=== PATIENT | female | born 1965 | race Two or more races ===

== ENCOUNTER 2016-06-07 13:22 | Emergency (ER) | payer OTHER ==
[~2016-06-07] VITALS: Ht 154.9 cm; Wt 72.6 kg
[2016-06-07 13:30] VITALS: BP 147/85
--- NOTE | 2016-06-07 13:41 | PHYS DOC ---
Past Medical History Past Medical History: Anxiety, High Cholesterol, Hypertension, Hypothyroid Past Surgical History: Cholecystectomy, Tubal ligation Alcohol Use: None Drug Use: None Adult General Chief Complaint Chief Complaint: LOWER BACK PAIN OR INJURY [facility] HPI Patient is a 50 year old female presents emergency room today with complaint of atraumatic left lower back and hip pain for approximately 6 months. Patient denies radiation of pain down her lower leg. She reports pain is worsened with activity/movement. She denies saddle anesthesia or incontinence of urine and bowel. She denies any previous pelvis or hip injuries. She denies any history of bone forming disorders. Patient states the prevailing thought of her primary care doctor was at this is sciatica. No previous images of been done. Review of Systems Review of Systems Constitutional: Denies fever or chills [] Eyes: Denies change in visual acuity, redness, or eye pain [] HENT: Denies nasal congestion or sore throat [] Respiratory: Denies cough or shortness of breath [] Cardiovascular: No additional information not addressed in HPI [] GI: Denies abdominal pain, nausea, vomiting, bloody stools or diarrhea [] : Denies dysuria or hematuria [] Musculoskeletal: Denies back pain or joint pain [] Integument: Denies rash or skin lesions [] Neurologic: Denies headache, focal weakness or sensory changes [] Endocrine: Denies polyuria or polydipsia [] Current Medications Current Medications Current Medications Medications (Trade) Dose Ordered Sig/[facility] Start Time Stop Time Status Last Admin Dose Admin Ketorolac Tromethamine (Toradol Im) 60 mg 1X ONCE 06/07/16 14:00 06/07/16 14:01 DC 06/07/16 13:53 60 MG Allergies Allergies Allergies Coded Allergies Type Severity Reaction Last Updated Verified No Known Drug Allergies 06/09/15 No Physical Exam Physical Exam Constitutional: Well developed, well nourished,mild distress, non-toxic appearance. [] HENT: Normocephalic, atraumatic, bilateral external ears normal, oropharynx moist, no oral exudates, nose normal. [] Eyes: PERRLA, EOMI, conjunctiva normal, no discharge. [] Neck: Normal range of motion, no tenderness, supple, no stridor. [] Cardiovascular:Heart rate regular rhythm, no murmur [] Lungs & Thorax: Bilateral breath sounds clear to auscultation [] Abdomen: Bowel sounds normal, soft, no tenderness, no masses, no pulsatile masses. [] Skin: Warm, dry, no erythema, no rash. [] Back: Patient's back is normal in appearance and nontender palpation. Patient's posterior pelvis is normal in appearance. There is tenderness to palpation to the left SI joint region and also the posterior lateral aspect of left hip. There is no palpable defect, deformity, instability or crepitus. Extremities: No tenderness, no cyanosis, no clubbing, ROM intact, no edema. [] Neurologic: Alert and oriented X 3, normal motor function, normal sensory function, no focal deficits noted. [] Psychologic: Affect normal, judgement normal, mood normal. [] Current Patient Data Vital Signs Vital Signs Date Time Temp Pulse Resp B/P Pulse Ox O2 Delivery O2 Flow Rate FiO2 06/07/16 13:30 98.0 98 19 98 Room Air 98.0 EKG EKG [] Radiology/Procedures Radiology/Procedures [facility] [address] [place], [place] [id number] IMAGING REPORT Signed PATIENT: ROCCO ROSARIO ACCOUNT: [id number] : 1965 LOCATION: ER AGE: 50 SEX: F EXAM STATUS: REG ER ORD. PHYSICIAN: HENRY GENAO REASON: hip and SI joint pain PROCEDURE: HIP LEFT 2V WITH PELVIS EXAM: Frontal pelvis with 2V left hip. HISTORY: Left hip and pelvic pain after remote fall. COMPARISON: None. FINDINGS: There is a tiny osteophyte along the right femoral head indicating early osteoarthritis. The joint spaces of both hips are maintained. Alignment of both hips appear normal. Both sacroiliac joints appear normal for patient age. No fractures are identified. There is a minimal lumbar levocurvature. Stool throughout the colon is consistent with constipation. IMPRESSION: 1. Early right hip osteoarthritis. No cause for left-sided pain is identified. DICTATED and SIGNED BY: WIL LEUNG MD DATE: 06/07/16 3346 CC: HENRY GENAO; CHIRAG OLVERA ~ Course & Med Decision Making Course & Med Decision Making Pertinent Labs and Imaging studies reviewed. (See chart for details) [] Dragon Disclaimer Dragon Disclaimer This electronic medical record was generated, in whole or in part, using a voice recognition dictation system. Departure Departure Impression: Primary Impression: Back pain Additional Impression: Hip pain Disposition: 01 HOME, SELF-CARE Condition: GOOD Referrals: CHIRAG OLVERA (PCP) Patient Instructions: Back Pain, Adult, [id number], Hip Pain Additional Instructions: 1. The x-rays of your pelvis and hip show no broken bones. You do have early arthritis changes in your right hip. 2. You may be compensating with weightbearing onto your left hip causing left hip pain because of the arthritis in your right hip. There is no evidence of neurologic compromise at this time. 3. Review the discharge instructions provided for self-care and reasons to return to the emergency department. 4. Take the medication as prescribed. The steroid is to help take care of any residual inflammation in the joint spaces. 5. Contact your primary care doctor Wednesday morning to schedule follow-up appointment for reevaluation within 7-10 days. Scripts Prednisone 50 Mg [id number] Mg PO DAILY 5 Days Prov:HENRY GENAO 06/07/16 Hydrocodone/Apap 5-325 ([place] 5-325 Tablet)1 Each Tablet1 Tab PO PRN Q6HRS PRN PAIN #15 TAB Prov:HENRY GENAO 06/07/16 Problem Qualifiers HENRY GENAO Jun 07, 2016 13:41
[2016-06-07] MEDS ORDERED: KETOROLAC TROMETHAMINE 60 MG/2 ML SYRINGE. IM ONE (14:00)
--- NOTE | 2016-06-07 14:39 | RAD ---
EXAM: Frontal pelvis with 2V left hip. HISTORY: Left hip and pelvic pain after remote fall. COMPARISON: None. FINDINGS: There is a tiny osteophyte along the right femoral head indicating early osteoarthritis. The joint spaces of both hips are maintained. Alignment of both hips appear normal. Both sacroiliac joints appear normal for patient age. No fractures are identified. There is a minimal lumbar levocurvature. Stool throughout the colon is consistent with constipation. IMPRESSION: 1. Early right hip osteoarthritis. No cause for left-sided pain is identified.
[2016-06-07] MEDS ORDERED: PRED50TA PO (14:56)
[2016-06-07] MEDS ORDERED: HYDR-971 PO (14:56)
== END 2016-06-07 14:58 | disposition home or self-care (01) ==
LOC: ER 13:22
DX: M54.5 Low back pain (principal); M25.552 Pain in left hip; E78.00 Pure hypercholesterolemia, unspecified; I10 Essential (primary) hypertension; E03.9 Hypothyroidism, unspecified
CPT/HCPCS: 73502; 96372; 99284; J1885